=== PATIENT | female | born 1980 | race Caucasian/White ===

== ENCOUNTER 2020-10-22 15:54 | Inpatient (IN) | payer OTHER ==
[~2020-10-22] VITALS: Ht 157.5 cm; Wt 135.2 kg
[2020-10-22 17:03] LABS: RED BLOOD COUNT 4.51 M/UL (4.00-5.10); WHITE BLOOD COUNT 11.1 K/UL (4.5-11.0)
[2020-10-22 17:51] LABS: BUN/CREATININE RATIO 18 (0-10)
[2020-10-22] MEDS ORDERED: SINGULAIR10 MG PO (23:21)
[2020-10-22] MEDS ORDERED: ADVAIR 100-501 EACH INH (23:22)
[2020-10-22] MEDS ORDERED: HYDROCODON-ACE1 EAC2 PO (23:23)
[2020-10-22] MEDS ORDERED: NEURONTIN 100100 MG PO (23:23)
[2020-10-22] MEDS ORDERED: VITAMIN D 40400 UNIT PO (23:24)
[2020-10-22] MEDS ORDERED: VITAMIN C500 M4 PO (23:24)
[2020-10-22] MEDS ORDERED: ALBUTEROL0.63 MG/3 INH (23:26)
[2020-10-24 05:37] LABS: HEMOGLOBIN 12.8 gm/dl (12.3-15.3); RED BLOOD COUNT 4.65 M/UL (4.00-5.10); WHITE BLOOD COUNT 13.4 K/UL (4.5-11.0)
[2020-10-24 06:05] LABS: BUN/CREATININE RATIO 26 (0-10)
[2020-10-24] MEDS ORDERED: MEDROL2 MG PO (09:56)
[2020-10-25 02:49] LABS: HEMOGLOBIN 12.7 gm/dl (12.3-15.3); RED BLOOD COUNT 4.4 M/UL (4.00-5.10); WHITE BLOOD COUNT 14.7 K/UL (4.5-11.0)
[2020-10-25 03:14] LABS: BUN/CREATININE RATIO 33 (0-10)
[2020-10-26 04:29] LABS: HEMOGLOBIN 13.1 gm/dl (12.3-15.3); RED BLOOD COUNT 4.59 M/UL (4.00-5.10); WHITE BLOOD COUNT 16.3 K/UL (4.5-11.0)
[2020-10-26 04:40] LABS: BUN/CREATININE RATIO 38 (0-10)
[2020-10-27 06:14] LABS: HEMOGLOBIN 13.1 gm/dl (12.3-15.3); RED BLOOD COUNT 4.58 M/UL (4.00-5.10); WHITE BLOOD COUNT 19.2 K/UL (4.5-11.0)
[2020-10-27 06:44] LABS: BUN/CREATININE RATIO 36 (0-10)
[2020-10-28 04:49] LABS: BUN/CREATININE RATIO 39 (0-10); RED BLOOD COUNT 4.68 M/UL (4.00-5.10)
[2020-10-28 05:02] LABS: WHITE BLOOD COUNT 24.1 K/UL (4.5-11.0)
[2020-10-29] MEDS ORDERED: HUMALOG 10100 UNITS/ SC (11:10)
[2020-10-29] MEDS ORDERED: BENZONATATE100 MG PO (11:15)
[2020-10-29] MEDS ORDERED: ALBUTEROL0.63 MG/3 INH (11:52)
[2020-10-29] MEDS ORDERED: PREDNISONE10 MG PO (13:23)
[2020-10-29] MEDS ORDERED: ROBITUSSIN AC480 ML PO (13:26)
--- NOTE | 2020-10-29 13:34 | NUR ---
INSTRUCTED PATIENT NEW SCRIPTS GIVEN WITH SCRIPT ALSO SENT TO PHARMACY. MEDROL DOSE PACK SENT TO PHARMACY CALLED TO CANCEL NEW SCRIPT HNAD GIVEN FOR PREDNISONE TAPERING DOSE PER DR. DIXON. OFFCE TO CALL WITH APPOINTMENT. APPOINTMENT MADE AT [facility]. VERBALIZED UNERSTANDING Axel FONSECA.
== END 2020-10-29 14:37 | disposition home or self-care (01) | DRG 202 ==
LOC: ER1 15:54 → CDU 21:17 → MED SURG 4 21:17
PROVIDERS: Internal Medicine Pulmonary Disease; Physician Assistant; ADMIT Internal Medicine
DX: J45.901 Unspecified asthma with (acute) exacerbation (principal); J96.01 Acute respiratory failure with hypoxia; Z68.43 Body mass index [BMI] 50.0-59.9, adult; T38.0X5A Adverse effect of glucocorticoids and synthetic analogues, initial encounter; E66.01 Morbid (severe) obesity due to excess calories; F17.210 Nicotine dependence, cigarettes, uncomplicated; Z20.822 Contact with and (suspected) exposure to COVID-19; E87.6 Hypokalemia; R73.9 Hyperglycemia, unspecified; Z98.51 Tubal ligation status
CPT/HCPCS: 0240U; 36415; 36600; 71045; 71046; 80048; 80053; 82785; 82803; 82962; 83036; 83735; 85025; 86140; 87081; 87205; 87880; 93971; 94640; 94664; 94760; 96365; 96372; 96375; 96376; 99285; G0378; J0696; J1100; J1650; J2920; J2930; J3475; J7070

== ENCOUNTER → 2020-11-12 | Outpatient (CLI) | payer OTHER ==
[~2020-11-12] MED LIST: ADVAIR 100-501 EACH INH; ALBUTEROL0.63 MG/3 INH; BENZONATATE100 MG PO; HUMALOG 10100 UNITS/ SC; HYDROCODON-ACE1 EAC2 PO; MEDROL2 MG PO; NEURONTIN 100100 MG PO; PREDNISONE10 MG PO; ROBITUSSIN AC480 ML PO; SINGULAIR10 MG PO; VITAMIN C500 M4 PO; VITAMIN D 40400 UNIT PO
== END ==
LOC: HEART 5 11:56
DX: J45.40 Moderate persistent asthma, uncomplicated (principal)
CPT/HCPCS: 94060

== ENCOUNTER 2021-06-01 16:12 | Inpatient (IN) | payer OTHER ==
[~2021-06-01] VITALS: Ht 157.5 cm; Wt 133.4 kg
[2021-06-01 17:27] LABS: HEMOGLOBIN 14.7 gm/dl (12.3-15.3); RED BLOOD COUNT 5.09 M/UL (4.00-5.10); WHITE BLOOD COUNT 11.5 K/UL (4.5-11.0)
[2021-06-01 17:47] LABS: BUN/CREATININE RATIO 21 (0-10)
[2021-06-01] MEDS ORDERED: IPRAT-ALBUT 0.5-3 ML INH (22:32)
[2021-06-01] MEDS ORDERED: ALBUTEROL2.5 MG/3 M INH (22:34)
[2021-06-01] MEDS ORDERED: BREO ELLIPTA 21 EACH INH (22:37)
[2021-06-01] MEDS ORDERED: HYDROCODON-ACE1 EAC2 PO (22:38)
[2021-06-02 12:22] LABS: HEMOGLOBIN 14.4 gm/dl (12.3-15.3); RED BLOOD COUNT 4.94 M/UL (4.00-5.10); WHITE BLOOD COUNT 13.1 K/UL (4.5-11.0)
[2021-06-02 13:19] LABS: BUN/CREATININE RATIO 24 (0-10)
[2021-06-03 03:13] LABS: HEMOGLOBIN 13.4 gm/dl (12.3-15.3); RED BLOOD COUNT 4.68 M/UL (4.00-5.10); WHITE BLOOD COUNT 20.5 K/UL (4.5-11.0)
[2021-06-03 03:53] LABS: BUN/CREATININE RATIO 30 (0-10)
[2021-06-04 03:17] LABS: RED BLOOD COUNT 4.49 M/UL (4.00-5.10); WHITE BLOOD COUNT 25.2 K/UL (4.5-11.0)
[2021-06-04 03:34] LABS: BUN/CREATININE RATIO 36 (0-10)
[2021-06-05 04:00] LABS: RED BLOOD COUNT 4.18 M/UL (4.00-5.10)
[2021-06-05 04:08] LABS: WHITE BLOOD COUNT 18.8 K/UL (4.5-11.0)
[2021-06-05 04:30] LABS: BUN/CREATININE RATIO 39 (0-10)
[2021-06-06 04:04] LABS: HEMOGLOBIN 11.9 gm/dl (12.3-15.3); RED BLOOD COUNT 4.12 M/UL (4.00-5.10); WHITE BLOOD COUNT 17.7 K/UL (4.5-11.0)
[2021-06-06 05:12] LABS: BUN/CREATININE RATIO 45 (0-10)
[2021-06-07 03:58] LABS: HEMOGLOBIN 12.4 gm/dl (12.3-15.3); RED BLOOD COUNT 4.33 M/UL (4.00-5.10)
[2021-06-07] MEDS ORDERED: BENZONATATE100 MG PO (09:12)
[2021-06-07] MEDS ORDERED: MYCOSTATIN100000 UTS PO (09:12)
[2021-06-07] MEDS ORDERED: LANTUS SOL100 UNIT/1 SQ (09:12)
[2021-06-07] MEDS ORDERED: PREDNISONE 10 M10 MG GT ×2 (09:12→09:18)
[2021-06-07] MEDS ORDERED: NORVASC5 MG PO (09:24)
[2021-06-07 14:10] LABS: D001-IGE D PTERONYSSINUS <0.10 kU/L (Class 0); D002-IGE D FARINAE <0.10 kU/L (Class 0); E001-IGE CAT DANDER <0.10 kU/L (Class 0); E005-IGE DOG DANDER <0.10 kU/L (Class 0); G002-IGE BERMUDA GRASS <0.10 kU/L (Class 0); G006-IGE TIMOTHY GRASS <0.10 kU/L (Class 0); M001-IGE PENICILLIUM CHRYSOGEN <0.10 kU/L (Class 0); M002-IGE CLADOSPORIUM HERBARUM <0.10 kU/L (Class 0); M003-IGE ASPERGILLUS FUMIGATUS <0.10 kU/L (Class 0); M006-IGE ALTERNARIA ALTERNATA <0.10 kU/L (Class 0); T001-IGE MAPLE/BOX ELDER <0.10 kU/L (Class 0); T003-IGE COMMON SILVER BIRCH <0.10 kU/L (Class 0); T006-IGE CEDAR, MOUNTAIN <0.10 kU/L (Class 0); T007-IGE OAK, WHITE <0.10 kU/L (Class 0); T010-IGE WALNUT <0.10 kU/L (Class 0); T011-IGE MAPLE LEAF SYCAMORE <0.10 kU/L (Class 0); T014-IGE COTTONWOOD <0.10 kU/L (Class 0); T015-IGE ASH, WHITE <0.10 kU/L (Class 0); T070-IGE WHITE MULBERRY <0.10 kU/L (Class 0); W001-IGE RAGWEED, SHORT <0.10 kU/L (Class 0); W018-IGE SHEEP SORREL <0.10 kU/L (Class 0)
== END 2021-06-07 11:23 | disposition home or self-care (01) | DRG 189 ==
LOC: ER1 16:12 → CDU 21:15 → PROG CARE 06-02 16:21
PROVIDERS: Emergency Medicine; Nurse Practitioner Family; Physician Assistant; ADMIT Internal Medicine
PROC: 3E0333Z Introduction of Anti-inflammatory into Peripheral Vein, Percutaneous Approach (ICD-10-PCS; principal; 2021-06-01)
DX: J96.01 Acute respiratory failure with hypoxia (principal); J45.901 Unspecified asthma with (acute) exacerbation; E66.2 Morbid (severe) obesity with alveolar hypoventilation; B37.0 Candidal stomatitis; Z68.43 Body mass index [BMI] 50.0-59.9, adult; Z20.822 Contact with and (suspected) exposure to COVID-19; J20.9 Acute bronchitis, unspecified; R73.9 Hyperglycemia, unspecified; T38.0X5A Adverse effect of glucocorticoids and synthetic analogues, initial encounter; G47.33 Obstructive sleep apnea (adult) (pediatric); D72.828 Other elevated white blood cell count; Z98.891 History of uterine scar from previous surgery; Z98.51 Tubal ligation status; Z87.891 Personal history of nicotine dependence
CPT/HCPCS: 0240U; 36415; 36600; 71045; 80048; 80053; 82785; 82803; 82962; 83605; 83880; 85025; 85027; 87040; 94640; 94660; 94664; 94760; 96374; 96375; 99285; G0378; J0456; J0696; J1030; J1100; J1650; J1885; J2405; J2920; J2930; J3475; J7030